=== PATIENT | female | born 1980 | race American Indian/Alaskan Native ===

== ENCOUNTER 2020-11-18 10:06 | Emergency (ER) | payer MEDICAID ==
[2020-11-18 10:22] VITALS: BP 123/68
--- NOTE | 2020-11-18 11:41 | Emergency Department Report ---
ED General Adult HPI - General Chief complaint: Medical Clearance Stated complaint: NOSE RING INFECTED Time Seen by Provider: 11/18/20 11:36 Source: patient Mode of arrival: Ambulatory Limitations: No Limitations - History of Present Illness Initial comments: 40-year-old female patient presents to the emergency department with complaints of an infected nose ring. Patient states her nose was pierced 2 days ago. She noticed a tender lesion along the site of the piercing earlier today. The area has not been draining. She has left the nose ring in place. Denies fever, chills, congestion, sore throat, neck pain, ear pain, facial swelling. Denies all other complaints at this time. - Related Data Home Medications Medication Instructions Recorded Confirmed Last Taken Pnv95/Ferrous Fumarate/FA 1 tab PO DAILY 12/17/13 03/20/14 03/17/14 13:00 [ Multivitamins Tablet] Previous Rx's Medication Instructions Recorded Last Taken Type Ibuprofen [Motrin 600 MG tab] 600 mg PO Q6H PRN #30 tablet 03/20/14 Unknown Rx Mupirocin [Bactroban 2%] 1 applic TP TID #1 tube 11/18/20 Unknown Rx Allergies Allergy/AdvReac Type Severity Reaction Status Date / Time apple Allergy Mild Vomiting Verified 03/18/14 21:57 soy AdvReac Intermediate Hives Verified 12/17/13 16:07 fragances Allergy Intermediate Rash Uncoded 03/20/14 05:06 melon Allergy Intermediate Hives Uncoded 03/20/14 05:07 ED Review of Systems ROS: Stated complaint: NOSE RING INFECTED Other details as noted in HPI Other: GENERAL: Negative for fever. CARDIOVASCULAR: Negative for chest pain. PULMONARY: Negative for shortness of breath. GASTROINTESTINAL: Negative for abdominal pain. MUSCULOSKELETAL: Negative for back pain. NEUROLOGICAL: Negative for headache. INTEGUMENTARY: Positive for skin lesion. ED Past Medical Hx - Past Medical History Hx Hypertension: No Hx Congestive Heart Failure: No Hx Diabetes: No Hx Deep Vein Thrombosis: No Hx Renal Disease: No Hx Sickle Cell Disease: No Hx Seizures: Yes Hx Asthma: Yes (as child) Hx COPD: No Hx HIV: No - Surgical History Past Surgical History?: No - Social History Smoking Status: Never Smoker Substance Use Type: Alcohol - Medications Home Medications: Home Medications Medication Instructions Recorded Confirmed Last Taken Type Pnv95/Ferrous Fumarate/FA 1 tab PO DAILY 12/17/13 03/20/14 03/17/14 13:00 History [ Multivitamins Tablet] Ibuprofen [Motrin 600 MG tab] 600 mg PO Q6H PRN #30 tablet 03/20/14 Unknown Rx Mupirocin [Bactroban 2%] 1 applic TP TID #1 tube 11/18/20 Unknown Rx ED Physical Exam - General Limitations: No Limitations - Other Other exam information: General: Awake, appropriately interactive, no acute distress. Neck: Supple. Full range of motion intact. Cardiovascular: Normal peripheral perfusion. Pulmonary: No respiratory distress. Patient is speaking normally without use of accessory muscles. Skin: Small erythematous papule noted to the external right nare along piercing site. Neurological: No facial asymmetry. Speech is clear. Follows commands. Patient is alert and oriented. Musculoskeletal: Moves all four extremities spontaneously with normal range of motion. Psych: Cooperative. Appropriate mood and affect. ED Course Vital Signs 11/18/20 10:21 Temperature 98.4 F Pulse Rate 67 Respiratory 15 Rate Blood Pressure 123/68 O2 Sat by Pulse 100 Oximetry ED Medical Decision Making - Medical Decision Making Differential diagnosis including but not limited to: folliculitis, abscess, cellulitis, acne vulgaris, contact dermatitis, impetigo Patient presents to emergency department with complaints of a painful lesion localized to site of recent nasal piercing. She is afebrile, hemodynamically stable, no respiratory distress. There is a small erythematous papule noted to the affected area. No fluctuance or purulence to warrant incision and drainage at this time. Patient has been instructed to remove the nasal piercing, apply warm compresses to the affected area, and use topical antibiotics as directed. Emphasized the importance of refraining from replacing the piercing until symptoms resolved. Patient has been referred to primary care provider for close outpatient follow-up. Patient expressed understanding and is agreeable to plan of care. Hand hygiene precautions discussed. Strict return precautions provided. History, exam, diagnostic testing, and current condition do not suggest worrisome pathology to warrant further testing, continued ED treatment, admission, or surgical evaluation at this point. Given the low probability of a significant medical illness, it would be more likely to result in harm than benefit to perform further testing at this stage. Discussed findings, presumpti ve diagnosis, need for follow-up and specific signs/symptoms that should prompt immediate return to the emergency department. Instructions were explained in detail to the patient in addition to giving written discharge information. Patient expressed understanding and was given the opportunity to ask questions, all of which were satisfactorily answered prior to discharge home. Critical care attestation.: If time is entered above; I have spent that time in minutes in the direct care of this critically ill patient, excluding procedure time. ED Disposition Clinical Impression: Infected pierced face Disposition: - TO HOME OR SELFCARE Is pt being admited?: No Does the pt Need Aspirin: No Condition: Stable Instructions: Wound Infection, [id number] Additional Instructions: Apply Bactroban ointment to affected area 3 times daily. Apply warm compresses to affected area 3 times daily. Remove piercing until symptoms resolve. Follow-up with primary care provider. Call today to schedule an appointment. See referral information below. Return to the emergency department immediately for new or worsening symptoms. Prescriptions: Mupirocin [Bactroban 2%] 1 applic TP TID #1 tube Referrals: JERRY COELHO MD [Staff Physician] - 3-5 Days [facility] [Provider Group] - 3-5 Days Time of Disposition: 11:41
== END 2020-11-18 12:02 | disposition home or self-care (01) ==
LOC: ED 10:06
DX: L08.9 Local infection of the skin and subcutaneous tissue, unspecified (principal); R56.9 Unspecified convulsions; J45.909 Unspecified asthma, uncomplicated; Z79.1 Long term (current) use of non-steroidal anti-inflammatories (NSAID); Z79.899 Other long term (current) drug therapy; Z88.8 Allergy status to other drugs, medicaments and biological substances
CPT/HCPCS: 99281